=== PATIENT | male | born 1955 | race Caucasian/White ===

== ENCOUNTER → 2017-09-08 16:29 | Outpatient (CLI) | payer BC ==
[~2017-09-08 16:29] MED LIST: BAYER CHEWABLE81 MG PO; BREO ELLIPTA 11 EACH INH; IPRAT-ALBUT 0.5-3 ML UPD; NITROSTAT0.4 MG SL; PROAIR HFA8.5 GM INH; REQUIP1 MG PO
[2017-09-08 17:04] LABS: ALBUMIN 3.8 g/dL (3.4-5.0); BILIRUBIN - INDIRECT 0.16 mg/dL (0.00-1.00); BILIRUBIN - TOTAL 0.2 mg/dL (0.2-1.3); CHOL - HDL RATIO 4.4 ratio (2.3-4.9); LDL-HDL RATIO 2.8 ratio (1.5-3.5); PROTEIN - SERUM 7.4 g/dL (6.4-8.2)
[2017-09-08 17:07] LABS: BILIRUBIN - DIRECT 0.04 mg/dL (0.00-0.30)
[2017-09-28 07:51] VITALS: BMI 24.5
== END | disposition home or self-care (01) ==
LOC: D.LABREF 16:29
PROVIDERS: Internal Medicine Cardiovascular Disease
DX: E78.00 Pure hypercholesterolemia, unspecified (principal); R07.9 Chest pain, unspecified

== ENCOUNTER → 2017-09-13 08:43 | Outpatient (CLI) | payer MEDICAID ==
--- NOTE | 2017-09-27 09:15 | EC ---
PATIENT:MASSIEL SANTOS DATE OF SERVICE: 09/13/17 SEX: M MEDICAL RECORD: [id number] DATE OF : 55 LOCATION:[facility] AGE OF PATIENT: 62 ADMISSION DATE: 09/13/17 REFERRING PHYSICIAN: INTERPRETING PHYSICIAN: CIPRIANO VIDALES MD ECHOCARDIOGRAM REPORT ECHO CHARGES 4 ECHO COMPLETE CLINICAL DIAGNOSIS: CP/PALPITATIONS/COPD ECHOCARDIOGRAPHIC MEASUREMENTS (adult normal given) AC root (d.<3.7cm) 3.1 cm LV Septum d (<1.2 cm> 1.2 cm Valve Excursion 1.8 cm LV Septum (systole) 1.9 cm Left Atria (s.<4.0cm> 2.5 cm LVPW d(<1.2cm) 1.2 cm RV (d.<2.3cm) 2.7 cm LVPW (sytole) 1.9 cm LV diastole(<5.6CM) 5.3 cm MV E-F(>70mm/sec) cm LV systole 2.9 cm LVOT Diameter 1.7 cm MV exc.(>10mm) cm Est.ejection fraction (50-75%) % Pericardial Effusion N DOPPLER: LVIT cm/sec A 56.0 cm/sec E 68.0 cm/sec LA cm/sec RVSP 17.0 mmHg LVOT 97.0 cm/sec AOP1/2T m/s Asc. Ao 138 cm/sec RVOT 52.0 cm/sec RA cm/sec PA cm/sec AV Gradient Peak 7.6 mmHg AV Mean 4.3 mmHg AV Area 1.6 cm MV Gradient Peak 2.3 mmHg MV Mean 0.97 mmHg MV Area cm COMMENTS: Marshmallow Machine Worker: Josh ARCEOE Fish Warden: Pat Vidales TAPE# PACS DATE OF SERVICE: 09/13/2017 PROCEDURE: Transthoracic echocardiogram. FINDINGS: 1. Left ventricle has mild concentric left ventricular hypertrophy. Inflow characteristics are normal. Ejection fraction is 55% to 60%. 2. The mitral valve is structurally normal. There is no significant mitral regurgitation. 3. The tricuspid valve is structurally normal with no significant tricuspid ECHOCARDIOGRAM REPORT [id number] MASSIEL SANTOS regurgitation. 4. The right ventricle has mild enlargement. 5. The right atrium is normal size, normal function. 6. The pulmonic valve is structurally normal. 7. There is no pericardial effusion. 8. The IVC is normal. CONCLUSIONS: The patient has mild left ventricular hypertrophy, but otherwise normal echocardiogram. TRANSINT:[id number] Voice Confirmation ID: [id number] DOCUMENT ID: [id number] CIPRIANO VIDALES MD at 0915 CC: [id number] DICTATION DATE: 09/15/17 0806 ORTHO/PROSTHETIC AIDE: 09/15/17 1033 DEP CLI 09/13/17 [id number] [place] [address]
[2017-09-28 07:51] VITALS: BMI 24.5
== END | disposition home or self-care (01) ==
LOC: D.ECHO 08:43
DX: R07.9 Chest pain, unspecified (principal); J44.9 Chronic obstructive pulmonary disease, unspecified; R00.2 Palpitations

== ENCOUNTER 2017-09-28 07:18 | Outpatient (CLI) | payer MEDICAID ==
[~2017-09-28] VITALS: Ht 167.6 cm; Wt 69.1 kg
--- NOTE | ~2017-09-28 | HEMODYNAMI ---
PATIENT:MASSIEL SANTOS MEDICAL RECORD: [id number] : 55 LOCATION:[facility] ADMISSION DATE: 09/28/17 Generatedon:09/28/20179:35 Patient name: MASSIEL SANTOS Patient #: [id number] SSN: : 1955 Date of study: 09/28/2017 Page: Of Hemodynamic Procedure Report Patient Data Patient Demographics Procedure consent was obtained First Name: MASSIEL Gender: Male Last Name: DANIELLE : 1955 Middle Initial: MARTINA Age: 62 year(s) Patient #: [id number] Race: Additional ID: [id number] Contact details Address: [address] [place] [address] rd State: [place] City: [place] Zip code: [address] Admission Admission Data Admission Date: 09/28/2017 Admission Time: 7:18 Lab Results Lab Result Date: 09/28/2017 Lab Result Time: 0:00 Biochemistry Name Units Result Min Max BUN mg/dl 11 --(-*--)-- 7 18 Creatinine mg/dl 1 --(--*-)-- 0.6 1.3 CBC Name Units Result Min Max Hemoglobin g/dl 15.7 --(--*-)-- 13.5 17.5 Procedure Procedure Types Cath Procedure Diagnostic Procedure [facility] w/Coronaries Miscellaneous Procedures Moderate Sedation up to 30 minutes Peripheral Cath Diagnostic Procedure Abd/Extremity Aortagram Procedure Description Procedure Date Procedure Date: 09/28/2017 Procedure Start Time: 9:09 Procedure End Time: 9:31 Procedure Staff Name Function Med Blanc MD Performing Physician Bozena Mcmahon RT Monitor Fredy Scales RT Scrub Ken Garcia RN Nurse Procedure Data Cath Procedure Fluoroscopy Diagnostic fluoroscopy Total fluoroscopy Time: 3.9 time: 3.9 min min Diagnostic fluoroscopy Total fluoroscopy dose: 548 dose: 548 mGy mGy Contrast Material Contrast Material Type Amount (ml) Isovue 300 95 Entry Location Entry Primary Successful Side Size Upsize Upsize Entry Closure Succes sful Closure Location (Fr) 1 (Fr) 2 (Fr) Remarks Device Remarks Femoral Right 5 Fr Exoseal artery Estimated blood loss: 5 ml Diagnostic catheters Device Type Used For End Catheter Placement Cordis 5Fr JL 4.0 Left Coronary Catheter (MP) Angiography Cordis 5Fr 3DRC Catheter Right Coronary (MP) Angiography Cordis 5Fr Pigtail LV Angiography Catheter (MP) Procedure Complications No complications Procedure Medications Medication Administration Route Dosage Oxygen NC 2 l/min Lidocaine 2% added to field 20 Heparin Flush Bag added to field 2 bags (1000units/500ml NS) 0.9% NaCl I.V. 100 ml/hr Fentanyl I.V. 25 mcg Versed I.V. 1.5 mg Hemodynamics Rest HGB: 15.7 (g/dl) Heart Rate: 73 (bpm) Pressure Samples Time Site Value (mmHg) Purpose Heart Use Rate(bpm) 9:25 LV 128/-18,5 EDP 84 9:26 AO 112/60(83) Pullback 76 9:26 LV 118/2,4 Pullback 76 Gradients Valve Time Site 1 Site 2 Mean SEP/DFP Peak To Heart Use (mmHg) (sec/min) Peak Rate (mmHg) (bpm) Aortic 9:26 LV AO 11 20 6 76 118/2,4 112/60(83) Calculations Valve P-P Mean Valve Index Valve Source Name Gradient Area Flow (cm2) Aortic 6 11 6 11 Snapshots Pre Cath Intra NCS Post Cath Vital Signs Time Heart Resp SPO2 etCO2 NIBP (mmHg) Rhythm Pain Sedation Rate (ipm) (%) (mmHg) Status Level (bpm) 8:57:52 79 21 97 0 131/91(105) NSR 0 (11) 10(A) , No pain 9:02:02 82 17 95 0 137/78(108) NSR 0 (11) 10(A) , No pain 9:06:10 74 18 97 28.4 122/89(107) NSR 0 (11) 10(A) , No pain 9:10:20 80 15 96 31.4 126/76(98) NSR 0 (11) 10(A) , No pain 9:14:28 80 16 95 29.9 117/81(96) NSR 0 (11) 9(A) , No pain 9:18:31 81 16 94 32.9 121/79(98) NSR 0 (11) 9(A) , No pain 9:22:39 78 16 95 34.4 122/75(95) NSR 0 (11) 9(A) , No pain 9:26:47 80 15 96 29.2 119/74(104) NSR 0 (11) 9(A) , No pain 9:30:52 78 16 96 32.2 120/78(101) NSR 0 (11) 10(A) , No pain Medications Time Medication Route Dose Verified Delivered Reason Notes Effec tiveness by by 8:56:24 Oxygen NC 2 Med Buffie used for l/min Jayashree Garcia RN procedure MD 8:56:32 Lidocaine 2% added 20ml Med Med for local to vial Jayashree Blanc MD anesthetic field 8:56:39 Heparin Flush added 2 Med Med used for Bag to bags Jayashree Blanc MD procedure (1000units/500ml field WARD NS) 8:56:48 0.9% NaCl I.V. 100 Med Buffie Per ml/hr Jayashree Garcia RN physician MD 9:10:22 Versed I.V. 1.5 Med Buffie for mg Jayashree Garcia RN sedation 9:11:05 Fentanyl I.V. 25 Med Buffie for mcg Jayashree Garcia RN sedation Procedure Log Time Note 8:39:10 Informed consent obtained and on chart 8:39:28 Diagnostic Cath Status : Elective 8:39:54 Fredy Scales RT(R) sent for patient. Start room use. 8:39:55 Time tracking: Regular hours 8:39:59 Plan of Care:Hemodynamics will remain stable., Cardiac rhythm will remain stable., Comfort level will be maintained., Respiratory function will remain adequate., Patient/ family verbilizes understanding of procedure., Procedure tolerated without complication., Recovers from procedure without complications.. 8:43:22 Lab Result : Hemoglobin 15.7 g/dl 8:43:22 Lab Result : Creatinine 1 mg/dl 8:43:22 Lab Result : BUN 11 mg/dl 8:48:29 Patient received from Pre/Post Procedure Room to [facility] 2 Alert and oriented. Tansferred to table in Supine position. 8:48:30 Warm blankets applied, and natan hugger turned on for patient comfort. 8:48:31 Correct patient and procedure confirmed by team. 8:48:31 ECG and BP/O2 sat monitors applied to patient. 8:56:24 Oxygen 2 l/min NC was administered by Ken Garcia RN; used for procedure; 8:56:32 Lidocaine 2% 20ml vial added to field was administered by Med Blanc MD; for local anesthetic; 8:56:39 Heparin Flush Bag (1000units/500ml NS) 2 bags added to field was administered by Med Blanc MD; used for procedure; 8:56:48 0.9% NaCl 100 ml/hr I.V. was administered by Ken Garcia RN; Per physician; 8:56:52 Vital chart was started 9:00:37 Baseline sample Acquired. 9:00:46 Rhythm: sinus rhythm 9:00:47 Full Disclosure recording started 9:01:37 H&P Date Dictated: 09/21/2017 Within 30 days and on chart., H&P Addendum completed by physician on day of procedure. (MUST COMPLETE FOR ALL OUTPATIENTS). 9:01:38 Pre-procedure instructions explained to patient. 9:01:39 Pre-op teaching completed and patient verbalized understanding. 9:01:40 Family in waiting room. 9:01:42 Patient NPO since Midnight. 9:02:14 Is the patient allergic to Iodine/contrast media? No. 9:02:15 Was the patient premedicated? No 9:07:27 Is patient on blood thinner?Yes 9:07:30 ACC The patient was administered the following blood thiners within the last 24 hours: ACCPlavix 9:07:34 Patient diabetic? No. 9:07:37 Previous problem with sedation/anesthesia? No ? 9:07:41 Snore? Yes 9:07:44 Sleep apnea? No 9:07:45 Deviated septum? No 9:07:46 Opens mouth fully? Yes 9:07:47 Sticks out tongue? Yes 9:07:57 Airway obstruction? Yes copd 9:08:03 Dentures? No ? 9:08:09 Pre procedure: right dorsailis pedis pulse 1+ Palpable, but thready & weak; easily obliterated 9:08:11 Pre procedure: left dorsailis pedis pulse 1+ Palpable, but thready & weak; easily obliterated 9:08:14 Patient pain scale 0/10 ?. 9:08:24 IV patent on arrival in left hand with 0.9% NaCl at [facility]. 9:08:26 Lab results completed and on chart. 9::31 Right groin area was prepped with chlora-prep and draped in sterile fashion 9:08:31 Alarms reviewed by RAna N. 9:08:32 Sharps counted by scrub and verified by R.N. 9:08:33 Physician arrived 9::34 --------ALL STOP TIME OUT------ ::34 Final Timeout: patient, procedure, and site verified with staff and physician. All members of the team are in agreement. 9:08:36 Right groin site verified by team. 9:08:39 Physical assessment completed. ASA score P 2 - A patient with mild systemic disease as per Med Blanc MD. 9:08:44 Sedation plan: IV Moderate Sedation Medication:Versed, Fentanyl 9:08:48 Use device set Femoral Dx 9:08:49 Acist Syringe opened to sterile field. 9:08:49 Bag Decanter opened to sterile field. 9:08:50 Medline Cath Pack opened to sterile field. 9:08:50 Terumo 5Fr Belzoni Sheath opened to sterile field. 9:08:51 St Devon 260cm J .035 wire opened to sterile field. 9:08:52 Acist Hand Control opened to sterile field. 9:08:52 Acist Manifold opened to sterile field. 9:08:53 Diagnostic Infinity 5Fr Multipack catheter opened to sterile field. 9:08:53 Tegaderm 4 x 4 opened to sterile field. 9:09:35 Procedure started. 9:09:39 Local anesthetic to right femoral artery with Lidocaine 2% by Med Blanc MD.INITIAL ACCESS ONLY 9:10:22 Versed 1.5 mg I.V. was administered by Ken Garcia RN; for sedation; 9:11:05 Fentanyl 25 mcg I.V. was administered by Ken Garcia RN; for sedation; 9:12:13 Access obtained with 4Fr micropunture. 9:13:04 Zero performed for pressure channel P1 9:13:26 A 5 Fr sheath was inserted into the Right Femoral artery 9:14:32 Terumo ANGLE 260cm glide wire opened to sterile field. 9:15:43 glide wire advanced. 9:16:29 A Cordis 5Fr JL 4.0 Catheter (MP) was advanced over the wire and used for Left Coronary Angiography. 9:17:49 LCA angiography performed. 9:17:52 Injector settings: Ml/sec: 3, Volume: 6, 9:20:23 Catheter removed. 9:20:41 A Cordis 5Fr 3DRC Catheter (MP) was advanced over the wire and used for Right Coronary Angiography. 9:22:06 RCA angiography performed. 9:22:09 Injector settings: Ml/sec: 3, Volume: 6, 9:23:16 Catheter removed. 9:23:22 A Cordis 5Fr Pigtail Catheter (MP) was advanced over the wire and used for LV Angiography. 9:25:35 LV hemodynamics recorded. 9:25:58 LV gram done using SANTO 9:26:01 Injector settings: Ml/sec: 5, Volume: 15, 9:26:12 EF : 60 % 9:28:50 Abdominal Aortagram was performed. 9:28:54 Catheter removed. 9:29:06 Cordis 5Fr Exoseal opened to sterile field. 9:29:22 Sheath removed intact; hemostasis achieved with Exoseal to the Right Femoral artery. 9:29:29 Procedure ended.(Physican Out) 9:29:53 Fluoroscopy time 03.90 minutes. 9:30:09 Fluoroscopy dose: 548 mGy 9:30:09 Flurop Dose total: 548 9:30:13 Contrast amount:Isovue 300 95ml. 9:30:14 Sharps counted by scrub and verified by R.N. 9:30:15 Insertion/operative site no bleeding no hematoma. 9:30:20 Post-op/insertion site Right Femoral artery dressed using a 4 x 4 and Tegaderm. 9:30:23 Post right femoral artery:stable 9:30:24 Post Procedure Pulses reassessed and unchanged 9:30:45 Post procedure rhythm: unchanged. 9:30:48 Estimated blood loss: 5 ml 9:30:50 Post procedure instruction explained to patient.Patient verbalizes understanding. 9:30:50 Patient needs reinforcement of post procedure teaching. 9:31:38 Procedure type changed to Cath procedure, Diagnostic procedure, LHC, LHC w/Coronaries, Miscellaneous Procedures, Moderate Sedation up to 30 minutes, Peripheral Cath Diagnostic Procedure, Abd/Extremity, Aortagram 9:31:40 Procedure and supply charges have been captured, reviewed, submitted and are correct. 9:31:46 Procedure Complication : No complications 9:31:48 Vital chart was stopped 9:31:48 See physician's report for complete and final results. 9:31:54 Report given to Pre/Post Procedure Room. 9:31:56 Patient transfered to Pre/Post Procedure Room with Stretcher. 9:31:58 Procedure ended. 9:31:58 Full Disclosure recording stopped 9:32:02 End room use (Document Last) Device Usage Item Name Manufacture Quantity Catalog Hospital Part Current Minimal Lo t# / Number Charge Number Stock Stock Serial# Code Acist Acist 1 60559 536121 201068 627166 20 Syringe [employer] Bag Microtek 1 [id number] [id number] 23254 647311 5 [employer]an[employer] Medline Cardinal 1 [id number] 317178 75349 938637 5 Cath Pack Health Terumo 5Fr Terumo 1 [id number] 660054 532779 805828 [address] St Devon 1 387253 443135 419227 826916 30 260cm J .035 wire Acist Hand Acist 1 05699 814771 339190 510903 5 Control [employer] Inc Acist Acist 1 08526 595706 552540 518755 5 Manifold [employer] Diagnostic Cardinal 1 [id number] 028406 96286 920692 30 Infinity Health 5Fr Multipack catheter Tegaderm 4 3M 1 1626W 143606 917147 732274 5 x 4 Terumo Terumo 1 [id number] 516271 860111 022400 5 ANGLE 260cm glide wire Cordis 5Fr Cardinal 1 [id number] 5 JL 4.0 Health Catheter (MP) Cordis 5Fr Cardinal 1 [id number] 5 3DRC Health Catheter (MP) Cordis 5Fr Cardinal 1 299424 5 Pigtail Health Catheter (MP) Cordis 5Fr Cardinal 1 [id number] 325701 911548 982737 10 [employer] Signature Audit [place] Stage Time Signature Unsigned Intra-Procedure 09/28/2017 Bozena Mcmahon 9:35:03 AM RT(R) Signatures Monitor : Bozena Mcmahon RT Signature : Date : Time : [address] [place] [address]
[2017-09-28] MEDS ORDERED: IPRAT-ALBUT 0.5-3 ML UPD (07:43)
[2017-09-28] MEDS ORDERED: REQUIP1 MG PO (07:44)
[2017-09-28] MEDS ORDERED: PROAIR HFA8.5 GM INH (07:44)
[2017-09-28] MEDS ORDERED: BREO ELLIPTA 11 EACH INH (07:44)
[2017-09-28] MEDS ORDERED: BAYER CHEWABLE81 MG PO (07:45)
[2017-09-28] MEDS ORDERED: NITROSTAT0.4 MG SL (07:45)
[2017-09-28 07:49] LABS: BASOPHILS 0.7 % (0-2); EOSINOPHILS 4.8 % (0-7); HEMATOCRIT 46.7 % (42.0-54.0); HEMOGLOBIN 15.7 g/dL (13.5-17.5); IMMATURE GRANULOCYTES 0.1 % (0-5); LYMPHOCYTES 39.2 % (15-50); MCHC 33.6 g/dL (31.0-37.0); MCV 89.1 fL (80.0-100.0); MEAN PLATELET VOLUME 9.3 fL (7.4-10.4); MONOCYTES 7.6 % (2-11); NEUTROPHILS 47.6 % (40-80); PLATELET COUNT 190 10x3/uL (130-400); RBC 5.24 10x6/uL (4.20-6.10); RDW 12.5 % (11.5-14.5); WBC 7.1 10x3/uL (4.8-10.8)
[2017-09-28 07:51] VITALS: BP 169/79; Ht 167.6 cm; Wt 69.1 kg
[2017-09-28 07:59] LABS: CALC OSMOLALITY 281 mosm/kg (275-300); CALCIUM 8.6 mg/dL (8.5-10.1); CARBON DIOXIDE 23.3 mmol/L (21.0-32.0); CHLORIDE - SERUM 108 mmol/L (98-107); GLUCOSE 96 mg/dL (74-106); POTASSIUM - SERUM 4.3 mmol/L (3.5-5.1); SODIUM 142 mmol/L (136-145); UREA NITROGEN 11 mg/dL (7-18); eGFR NON AFRICAN AMERICAN 80 mL/min (90-120)
--- NOTE | 2017-09-28 10:00 | NUR ---
2L NC, NO RESP DISTRESS. RIGHT GROIN 5F EXOSEAL CDI, NO BLEEDING OR HEMATOMA NOTED. NO C/O NAUSEA OR PAIN. VSS. FAMILY AT BEDSIDE, CALL LIGHT WITHIN REACH.
--- NOTE | 2017-09-28 10:30 | NUR ---
RESTING QUEITLY WITH EYES CLOSED. RIGHT GROIN 5F EXOSEAL CDI, NO BLEEDING OR HEMATOMA NOTED. 2L NC, NO RESP DISTRESS. NO C/O PAIN OR NAUSEA AT THIS TIME. VSS. WILL CONTINUE TO MONITOR.
--- NOTE | 2017-09-28 10:50 | NUR ---
DISCHARGE INSTRUCTIONS GIVEN, VERBALIZED UNDERSTANDING.
--- NOTE | 2017-09-28 11:15 | NUR ---
HOB ELEVATED 30 DEGREES. RIGHT GROIN 5F EXOSEAL CDI, NO BLEEDING NOTED. DRINK AND SANDWICH TRAY GIVEN, NO C/O NAUSEA. VSS. WILL CONTINUE TO MONITOR.
--- NOTE | 2017-09-28 11:30 | NUR ---
LEFT HAND PIV D/C'D WITH CATHETER INTACT, BAND AID TO SITE. UP TO BEDSIDE TO GET DRESSED.
--- NOTE | 2017-09-28 11:40 | NUR ---
AMBULATED TO RESTROOM TO VOID.
--- NOTE | 2017-09-28 11:45 | NUR ---
DISCHARGE INSTRUCTIONS GIVEN, VERBALIZED UNDERSTANDING.
--- NOTE | 2017-09-28 11:50 | NUR ---
TAKEN OUT VIA WHEELCHAIR BY CATH MATERIAL CONTROL ANALYST. LEFT FACILITY WITH AND ALL PERSONAL BELONGINGS.
== END 2017-09-28 11:50 | disposition home or self-care (01) ==
LOC: D.CATH 07:18
PROVIDERS: Internal Medicine Cardiovascular Disease
DX: I25.10 Atherosclerotic heart disease of native coronary artery without angina pectoris (principal); R94.39 Abnormal result of other cardiovascular function study; I70.201 Unspecified atherosclerosis of native arteries of extremities, right leg; I70.1 Atherosclerosis of renal artery; I70.0 Atherosclerosis of aorta; Z01.812 Encounter for preprocedural laboratory examination

== ENCOUNTER → 2017-11-03 18:03 | Outpatient (CLI) | payer MEDICAID ==
[2017-09-28 07:51] VITALS: BMI 24.5
[2017-11-03 20:40] LABS: CHOL - HDL RATIO 2.6 ratio (2.3-4.9); LDL-HDL RATIO 1.3 ratio (1.5-3.5)
== END | disposition home or self-care (01) ==
LOC: D.LABREF 18:03
PROVIDERS: Internal Medicine Cardiovascular Disease
DX: E78.5 Hyperlipidemia, unspecified (principal); I25.10 Atherosclerotic heart disease of native coronary artery without angina pectoris

== ENCOUNTER → 2018-02-07 09:30 | Outpatient (CLI) | payer MEDICAID ==
[2017-09-28 07:51] VITALS: BMI 24.5
== END | disposition home or self-care (01) ==
LOC: D.RT 09:30
DX: J44.9 Chronic obstructive pulmonary disease, unspecified (principal)